=== PATIENT | male | born 1965 | race Hispanic/Latino ===

== ENCOUNTER 2017-01-22 06:14 | Observation (INO) | payer OTHER ==
--- NOTE | 2017-01-22 06:48 | ED PDOC ---
HPI: Abdomen Time Seen by Provider: 01/22/17 06:37 Chief Complaint (Nursing): Abdominal Pain Chief Complaint (Provider): Abdominal Pain History Per: Patient History/Exam Limitations: no limitations Onset/Duration Of Symptoms: Hrs (x24), Intermittent Episodes, Worse Since (x4 hours) Current Symptoms Are (Timing): Still Present Location Of Pain/Discomfort: RLQ Quality Of Discomfort: Sharp Associated Symptoms: Chills. denies: Fever, Nausea, Vomiting, Diarrhea Additional Complaint(s): 51 year old male presents to ED with complaints of intermittent abdominal pain x24 hours and has no past medical history. Patient notes that pain is present in RLQQ, describes the pain as sharp and notes that the pain has been progressively worsening x4 hours. (-) fever, nausea, vomiting, or diarrhea. (+) chills. Confirms taking Advil and Gas-X with no relief. PCP: Khurram Mcallister Past Medical History Reviewed: Historical Data, Nursing Documentation, Vital Signs Vital Signs: Last Vital Signs Temp 98.2 F 01/23/17 01:57 Pulse 89 01/23/17 01:57 Resp 20 01/23/17 01:57 BP 120/97 H 01/23/17 01:57 Pulse Ox 98 01/23/17 01:57 - Medical History PMH: No Chronic Diseases - Surgical History Other surgeries: right hand 4th digit surgery post-injury - Family History Family History: States: No Known Family Hx - Living Arrangements Living Arrangements: With Family - Home Medications Home Medications: Ambulatory Orders Medication Instructions Recorded No Known Home Med 01/22/17 - Allergies Allergies/Adverse Reactions: Allergies Allergy/AdvReac Type Severity Reaction Status Date / Time No Known Allergies Allergy Verified 01/22/17 06:25 Review of Systems ROS Statement: Except As Marked, All Systems Reviewed And Found Negative Constitutional: Positive for: Chills. Negative for: Fever Gastrointestinal: Positive for: Abdominal Pain. Negative for: Nausea, Vomiting , Diarrhea Physical Exam - Reviewed Nursing Documentation Reviewed: Yes Vital Signs Reviewed: Yes - Physical Exam Appears: Positive for: No Acute Distress Skin: Positive for: Normal Color, Warm Eye Exam: Positive for: Normal appearance ENT: Positive for: Normal ENT Inspection Neck: Positive for: Normal, Painless ROM, Supple Cardiovascular/Chest: Positive for: Regular Rate, Rhythm. Negative for: Murmur Respiratory: Positive for: Normal Breath Sounds. Negative for: Respiratory Distress Gastrointestinal/Abdominal: Positive for: Soft, Tenderness (Right lower quadrant tenderness). Negative for: Other ((-) obturator's or psoas signs) Back: Positive for: Normal Inspection Extremity: Positive for: Normal ROM. Negative for: Deformity Neurologic/Psych: Positive for: Alert, Oriented. Negative for: Motor/Sensory Deficits - Laboratory Results Result Diagrams: 01/22/17 06:45 01/22/17 06:45 - ECG O2 Sat by Pulse Oximetry: 98 (RA) Pulse Ox Interpretation: Normal Medical Decision Making Medical Decision Makin Initial impression: Right lower quadrant pain Initial plan: * CTA A/P * EKG * Labs * Lact Acid * Lipase * PTT/PT * BCx * ED OBS ADMISSION * UA All further documentation will take place in ED OBS note. Scribe Attestation: Documented by Kylee Ibanez acting as a scribe for Sam Fishman MD. Scribe Attestation: All medical record entries made by the Scribe were at my direction and personally dictated by me. I have reviewed the chart and agree that the record accurately reflects my personal performance of the history, physical exam, medical decision making, and the department course for this patient. I have also personally directed, reviewed, and agree with the discharge instructions and disposition. ED OBSERVATION Date of observation admission: 01/22/17 Time of observation admission: 06:44 - Observation admission statement Patient is being placed in observation because:: pending CT - Goals of Observation Goals of observation are:: pending CT - Progress Note Progress Note: 01/22/17 07:00 Patient will be signed out to Dr. Alcala pending CT. Disposition - Clinical Impression Clinical Impression: Abdominal pain - Disposition Disposition: Transfer of Care Disposition Time: 06:44 Condition: STABLE Patient Signed Over To: Chao Alcala III (At 0700) Handoff Comments: pending CT - Pt Status Changed To: Hospital Disposition Of: Observation (ED OBS) - POA Present On Arrival: None
--- NOTE | 2017-01-22 07:05 | ED PDOC ---
- Laboratory Results Result Diagrams: 01/22/17 06:45 01/22/17 06:45 - ECG O2 Sat by Pulse Oximetry: 98 (RA) Medical Decision Making Medical Decision Makin Patient transferred to al by Dr. Fishman. Pending CT and reevaluation 0830 -Labs reviewed. White blood cell count elevated. [address] FINDINGS: LOWER THORAX: Mild bibasilar dependent atelectasis. LIVER: Unremarkable. No gross lesion or ductal dilatation. GALLBLADDER AND BILE DUCTS: Unremarkable. PANCREAS: Unremarkable. No gross lesion or ductal dilatation. SPLEEN: Unremarkable. ADRENALS: Unremarkable. No mass. KIDNEYS AND URETERS: 2 mm nonobstructing mid left renal calculus. Minimal dilatation of the left renal pelvis and collecting system likely reflecting ureteropelvic junction obstruction. Less likely, parapelvic cysts. No renal mass. No right renal calculus. VASCULATURE: Unremarkable. No aortic aneurysm. BOWEL: No bowel obstruction. Findings consistent with acute appendicitis. Appendix dilated up to 16 mm and filled with fluid and trace gas. Periappendiceal inflammatory change. No periappendiceal abscess. No free air. Shotty subcentimeter mesenteric nodes are seen in the right lower quadrant of the abdomen medial to the cecum. APPENDIX: As above PERITONEUM: Unremarkable. No free fluid. No free air. LYMPH NODES: Unremarkable. No enlarged lymph nodes. BLADDER: Unremarkable. REPRODUCTIVE: Normal prostate BONES: No acute fracture. OTHER FINDINGS: None. IMPRESSION: Findings consistent with acute uncomplicated appendicitis. No abscess. No free air. Incidental 2 mm nonobstructing mid left renal calculus. 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 No other significant abnormality. -Discussed with FP resident, states Dr. Coleman used Dr. Ruiz for surgery. -Discussed with resident buyer. Disposition - Disposition Condition: STABLE
[2017-01-22 07:09] LABS: BASO # 0.1 K/uL (0.0-0.2); BASO % 0.5 % (0.0-2.0); EOS % 0.1 % (0.0-4.0); HEMATOCRIT 43.8 % (35.0-51.0); LYMPH # 1.3 K/uL (1.0-4.3); LYMPH % 6.3 % (20.0-40.0); MEAN CELL VOLUME 90.3 fl (80.0-94.0); MEAN CORPUSCULAR HEMOGLOBIN 30.2 pg (27.0-31.0); MEAN CORPUSCULAR HGB CONC 33.4 g/dL (33.0-37.0); MEAN PLATELET VOLUME 8.5 fl (7.2-11.7); MONO # 1.9 K/uL (0.0-0.8); MONO % 9.4 % (0.0-10.0); NEUT % 83.7 % (50.0-75.0); PLATELET COUNT 241 K/uL (130-400); RED CELL DISTRIBUTION WIDTH 13.3 % (11.5-14.5); WHITE BLOOD COUNT 20.3 K/uL (4.8-10.8)
[2017-01-22 07:16] LABS: ALB/GLOB RATIO 1.5 (1.0-2.1); ALKALINE PHOSPHATASE 69 U/L (38-126); ALT/SGPT 26 U/L (21-72); AST/SGOT 30 U/L (17-59); BILIRUBIN,TOTAL 1.1 mg/dl (0.2-1.3); BLOOD UREA NITROGEN 7 mg/dl (9-20); CALCIUM 9.4 mg/dL (8.4-10.2); CARBON DIOXIDE 25 mmol/L (22-30); CHLORIDE 102 mmol/L (98-107); GFR AFRICAN-AMERICAN > 60; GLUCOSE,RANDOM 131 mg/dL (75-110); LIPASE 24 U/L (23-300); POTASSIUM 4.1 MMOL/L (3.6-5.0); SODIUM 141 mmol/l (132-148); TOTAL PROTEIN 7.2 G/DL (6.3-8.2)
[2017-01-22 07:24] LABS: PARTIAL THROMBOPLASTIN TIME 31.5 Seconds (25.6-37.1)
[2017-01-22 08:00] LABS: RBC URINE 2 /hpf (0-3); URINE BILIRUBIN NEGATIVE (NEGATIVE); URINE BLOOD NEGATIVE (NEGATIVE); URINE COLOR YELLOW (YELLOW); URINE GLUCOSE (UA) NEG (Normal); URINE KETONE TRACE mg/dL (NEGATIVE); URINE LEUKOCYTE ESTERASE NEG Leu/uL (Negative); URINE PROTEIN NEGATIVE (NEGATIVE); URINE UROBILINOGEN 0.2-1.0 mg/dL (0.2-1.0); WBC URINE 1 /hpf (0-5)
[2017-01-22] MEDS ORDERED: Sodium Chloride 0.9% 1,000 ML IV STA (08:17)
[2017-01-22 08:46] LABS: VENOUS BLOOD GAS BASE EXCESS 3.8 mmol/L (0.0-2.0); VENOUS BLOOD GAS PCO2 48 mmHg (40-60)
[2017-01-22] MEDS ORDERED: Sodium Chloride 0.9% 50 ML IV ONE (09:32)
[2017-01-22] MEDS ORDERED: Iohexol 300 100 ML IJ ONE (09:32)
[2017-01-22 09:43] LABS: NEUTROPHIL 85 % (42-75); TOTAL CELLS COUNTED 100
--- NOTE | 2017-01-22 10:42 | CT ---
PROCEDURE: CT Abdomen and Pelvis with contrast HISTORY: RLQ COMPARISON: None. TECHNIQUE: Contrast dose: 95 mL Omnipaque 300 Radiation dose: Total exam DLP = 1147.41 mGy-cm. This CT exam was performed using one or more of the following dose reduction techniques: Automated exposure control, adjustment of the mA and/or kV according to patient size, and/or use of iterative reconstruction technique. FINDINGS: LOWER THORAX: Mild bibasilar dependent atelectasis. LIVER: Unremarkable. No gross lesion or ductal dilatation. GALLBLADDER AND BILE DUCTS: Unremarkable. PANCREAS: Unremarkable. No gross lesion or ductal dilatation. SPLEEN: Unremarkable. ADRENALS: Unremarkable. No mass. KIDNEYS AND URETERS: 2 mm nonobstructing mid left renal calculus. Minimal dilatation of the left renal pelvis and collecting system likely reflecting ureteropelvic junction obstruction. Less likely, parapelvic cysts. No renal mass. No right renal calculus. VASCULATURE: Unremarkable. No aortic aneurysm. BOWEL: No bowel obstruction. Findings consistent with acute appendicitis. Appendix dilated up to 16 mm and filled with fluid and trace gas. Periappendiceal inflammatory change. No periappendiceal abscess. No free air. Shotty subcentimeter mesenteric nodes are seen in the right lower quadrant of the abdomen medial to the cecum. APPENDIX: As above PERITONEUM: Unremarkable. No free fluid. No free air. LYMPH NODES: Unremarkable. No enlarged lymph nodes. BLADDER: Unremarkable. REPRODUCTIVE: Normal prostate BONES: No acute fracture. OTHER FINDINGS: None. IMPRESSION: Findings consistent with acute uncomplicated appendicitis. No abscess. No free air. Incidental 2 mm nonobstructing mid left renal calculus. 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 No other significant abnormality.
[2017-01-22] MEDS ORDERED: Piperacillin/Tazobact 4.5 GM in Sodium Chloride 0.9% 100 ML IVPB ONE (11:30)
[2017-01-22] MEDS ORDERED: Propofol 10 mg/ml Inj (20 ML) ONE (12:04)
[2017-01-22] MEDS ORDERED: Midazolam 2 MG/2 ML VIAL ONE (12:04)
[2017-01-22] MEDS ORDERED: Rocuronium 10 mg/ml (5 ml) ONE (12:05)
[2017-01-22] MEDS ORDERED: Bupivacaine 0.5% Inj(30mL) ONE (12:13)
[2017-01-22] MEDS ORDERED: Lactated Ringer's 1,000 ML IV ONE (12:15)
[2017-01-22] MEDS ORDERED: Sevoflurane - Inhalation Anesthetic Liq (250 ml) ONE (12:30)
[2017-01-22] MEDS ORDERED: Neostigmine Methylsulfate 3mg/3ml Syringe IV ONE (12:49)
[2017-01-22] MEDS ORDERED: Lactated Ringer's 1,000 ML IV PRN ×2 (12:50→23:30)
[2017-01-22] MEDS ORDERED: Sodium Chloride 0.9% 1,000 ML IV ONE (13:00)
[2017-01-22] MEDS ORDERED: Oxycodone/Acetaminophen 5/325 mg Tab PO PRN (13:06)
--- NOTE | 2017-01-22 13:06 | PCM.SURG1 ---
Surgeon's Initial Post Op Note - Surgeon's Notes Surgeon: Dr. Lara Hoof And Shoe Inspector: Dr. Sosa PGY3 Type of Anesthesia: General Endo, Local Pre-Operative Diagnosis: acute appendicitis Operative Findings: acute gangrenous nonperforated appendicitis Post-Operative Diagnosis: acute suppuritive appendicitis Operation Performed: laparoscopic appendectomy Specimen/Specimens Removed: appendix Estimated Blood Loss: EBL {In ML}: 5 Blood Products Given: N/A Drains Used: No Drains Post-Op Condition: Good Date of Surgery/Procedure: 01/22/17 Time of Surgery/Procedure: 13:06
[2017-01-22] MEDS ORDERED: Lactated Ringer's 500 ML IV ONE (14:30)
[2017-01-22] MEDS ORDERED: Influenza Vaccine 18yr & older 0.5 ML/45 MCG SYR IM ONE (15:15)
--- NOTE | 2017-01-22 15:59 | CP.PCM.HP ---
<Mejia Hurst - Last Filed: 01/22/17 15:55> History of Present Illness - History of Present Illness History of Present Illness: 51 y/o male with an unremarkable PMHx admitted for acute appendicitis. Pt is s/ p lap appendectomy, POD0. Surgery was uncomplicated and pt had an uncomplicated post-op course thus far. Pt seen and examined at bedside this afternoon with senior resident. Pt reports feeling well overall. Pain controlled. No flatus/BM/ urination yet. Tolerating ice chips w/o issue. Reports he would like to get out of bed and ambulate. Denies fever/chills, headaches, changes in vision, CP/SOB/ Palpitatations, N/V/D, numbness/tingling, calf pain. PMD: Dr. Mcallister PMHx: denies Meds: denies ALL: NKDA PSurgHx: right finger fx repair PHospHx: denies SocialHx: denies ETOH/Tobacco/Drug abuse. Present on Admission - Present on Admission Any Indicators Present on Admission: No Review of Systems - Review of Systems Review of Systems: 12 systems reviewed, found to be negative Past Patient History - Past Medical History & Family History Past Medical History?: No - Past Social History Smoking Status: Never Smoked Alcohol: None Drugs: Denies Home Situation {Lives}: With Family - PSYCHIATRIC Hx Substance Use: No - SURGICAL HISTORY Hx Surgeries: No (right finger sx) - ANESTHESIA Hx Anesthesia: No Meds Allergies/Adverse Reactions: Allergies Allergy/AdvReac Type Severity Reaction Status Date / Time No Known Allergies Allergy Verified 01/22/17 06:25 Physical Exam - Constitutional Appears: Non-toxic, No Acute Distress - Head Exam Head Exam: ATRAUMATIC, NORMOCEPHALIC - Eye Exam Eye Exam: EOMI. absent: Conjunctival injection, Scleral icterus Pupil Exam: PERRL - ENT Exam ENT Exam: Mucous Membranes Moist - Neck Exam Neck exam: Positive for: Normal Inspection - Respiratory Exam Respiratory Exam: Clear to Auscultation Bilateral, NORMAL BREATHING PATTERN. absent: Decreased Breath Sounds, Rales, Rhonchi, Wheezes, Respiratory Distress - Cardiovascular Exam Cardiovascular Exam: REGULAR RHYTHM, RRR, +S1, +S2. absent: Tachycardia, Gallop , JVD, Rubs, Systolic Murmur - GI/Abdominal Exam GI & Abdominal Exam: Normal Bowel Sounds, Soft, Tenderness (mild tendereness diffusely). absent: Distended, Firm, Guarding, Rebound, Rigid - Extremities Exam Extremities exam: Positive for: normal capillary refill, normal inspection, pedal pulses present. Negative for: calf tenderness, pedal edema, tenderness - Back Exam Back exam: NORMAL INSPECTION - Neurological Exam Neurological exam: Alert, CN II-XII Intact, Oriented x3 - Psychiatric Exam Psychiatric exam: Normal Affect, Normal Mood - Skin Skin Exam: Dry, Intact, Normal Color, Warm Results - Vital Signs Recent Vital Signs: Last Vital Signs Temp 98.1 F 01/22/17 14:50 Pulse 83 01/22/17 14:50 Resp 18 01/22/17 14:50 BP 121/77 01/22/17 14:50 Pulse Ox 96 01/22/17 14:50 - Labs Result Diagrams: 01/22/17 06:45 01/22/17 06:45 Labs: Laboratory Results - last 24 hr 01/22/17 01/22/17 01/22/17 06:45 06:45 06:45 WBC 20.3 H RBC 4.84 Hgb 14.6 Hct 43.8 MCV 90.3 MCH 30.2 MCHC 33.4 RDW 13.3 Plt Count 241 MPV 8.5 Neut % (Auto) 83.7 H Lymph % (Auto) 6.3 L [place] % (Auto) 9.4 Eos % (Auto) 0.1 Baso % (Auto) 0.5 Neut # 17.0 H Lymph # 1.3 [place] # 1.9 H Eos # 0.0 Baso # 0.1 Neutrophils % (Manual) 85 H Lymphocytes % (Manual) 7 L Monocytes % (Manual) 8 Hypersegmented Polys Present Platelet Estimate Normal RBC Morphology Normal PT 12.6 INR 1.2 APTT 31.5 pO2 VBG pH VBG pCO2 VBG HCO3 VBG Total CO2 VBG O2 Sat (Calc) VBG Base Excess VBG Potassium Glucose Lactate FiO2 Sodium 141 Potassium 4.1 Chloride 102 Carbon Dioxide 25 Anion Gap 18 BUN 7 L Creatinine 0.9 Est GFR ( Amer) > 60 Est GFR (Non-Af Amer) > 60 Random Glucose 131 H Lactic Acid Calcium 9.4 Total Bilirubin 1.1 AST 30 ALT 26 Alkaline Phosphatase 69 Total Protein 7.2 Albumin 4.3 Globulin 2.8 Albumin/Globulin Ratio 1.5 Lipase 24 Venous Blood Potassium Urine Color Urine Clarity Urine pH Ur Specific [place] Urine Protein Urine Glucose (UA) Urine Ketones Urine Blood Urine Nitrate Urine Bilirubin Urine Urobilinogen Ur Leukocyte Esterase Urine RBC (Auto) Urine Microscopic WBC Ur Squamous Epith Cells 01/22/17 01/22/17 01/22/17 06:45 06:50 08:34 WBC RBC Hgb Hct MCV MCH MCHC RDW Plt Count MPV Neut % (Auto) Lymph % (Auto) [place] % (Auto) Eos % (Auto) Baso % (Auto) Neut # Lymph # [place] # Eos # Baso # Neutrophils % (Manual) Lymphocytes % (Manual) Monocytes % (Manual) Hypersegmented Polys Platelet Estimate RBC Morphology PT INR APTT pO2 17 L VBG pH 7.40 VBG pCO2 48 VBG HCO3 25.9 VBG Total CO2 31.2 H VBG O2 Sat (Calc) 34.3 L VBG Base Excess 3.8 H VBG Potassium 5.0 Glucose 129 H Lactate 0.8 FiO2 21.0 Sodium 135.0 Potassium Chloride 102.0 Carbon Dioxide Anion Gap BUN Creatinine Est GFR ( Amer) Est GFR (Non-Af Amer) Random Glucose Lactic Acid 1.1 Calcium Total Bilirubin AST ALT Alkaline Phosphatase Total Protein Albumin Globulin Albumin/Globulin Ratio Lipase Venous Blood Potassium 5.0 Urine Color Yellow Urine Clarity Clear Urine pH 6.0 Ur Specific [place] 1.010 Urine Protein Negative Urine Glucose (UA) Neg Urine Ketones Trace Urine Blood Negative Urine Nitrate Negative Urine Bilirubin Negative Urine Urobilinogen 0.2-1.0 Ur Leukocyte Esterase Neg Urine RBC (Auto) 2 Urine Microscopic WBC 1 Ur Squamous Epith Cells < 1 Assessment & Plan (1) Acute appendicitis Assessment and Plan: s/p Lap appendectomy POD 0 -IV Fluid hydration -monitor CBC/CMP/vitals -pain control -OOB/ambulation when tolerated -advance diet as tolerated Status: Acute (2) Prophylactic measure Assessment and Plan: scds prn OOB/ambulation Status: Acute <Khurram Mcallister - Last Filed: 01/24/17 06:46> Results - Vital Signs Recent Vital Signs: Last Vital Signs Temp 98.4 F 01/23/17 09:00 Pulse 81 01/23/17 09:00 Resp 20 01/23/17 09:00 BP 107/67 01/23/17 09:00 Pulse Ox 96 01/23/17 09:00 - Labs Result Diagrams: 01/23/17 05:45 01/23/17 05:45 Labs: Laboratory Results - last 24 hr 01/23/17 01/23/17 05:45 05:45 WBC 13.3 H RBC 4.37 L Hgb 13.0 Hct 39.5 MCV 90.4 MCH 29.8 MCHC 33.0 RDW 13.8 Plt Count 197 MPV 8.9 Neut % (Auto) 77.0 H Lymph % (Auto) 11.0 L [place] % (Auto) 11.3 H Eos % (Auto) 0.4 Baso % (Auto) 0.3 Neut # 10.2 H Lymph # 1.5 [place] # 1.5 H Eos # 0.1 Baso # 0.0 Sodium 141 Potassium 3.9 Chloride 107 Carbon Dioxide 22 Anion Gap 16 BUN 8 L Creatinine 1.0 Est GFR ( Amer) > 60 Est GFR (Non-Af Amer) > 60 Random Glucose 111 H Calcium 8.4 Total Bilirubin 1.5 H AST 18 ALT 25 Alkaline Phosphatase 56 Total Protein 6.1 L Albumin 3.4 L D Globulin 2.7 Albumin/Globulin Ratio 1.3 Attending/Attestation - Attestation I have personally seen and examined this patient.: Yes I have fully participated in the care of the patient.: Yes I have reviewed all pertinent clinical information: Yes
[2017-01-22] MEDS: Piperacillin/Tazobact 3.375 GM in Sodium Chloride 0.9% 100 ML IVPB SCH ×2 (16:32→21:25)
--- NOTE | 2017-01-23 01:11 | OP ---
PROCEDURE DATE: 01/22/2017 PREOPERATIVE DIAGNOSIS: Acute appendicitis. POSTOPERATIVE DIAGNOSIS: Acute suppurative appendicitis. PROCEDURE: Laparoscopy and laparoscopic appendectomy. SURGEON: Dr. Lara. RN INTEGRITY: Dr. Sosa. TYPE OF ANESTHESIA: General. ANESTHESIA ADMINISTERED BY: . OPERATIVE FINDINGS: Acute suppurative and grossly gangrenous appendicitis. PROCEDURE: The patient was brought to the Operating Room and after successful induction of general endotracheal anesthesia was obtained and a Fabian catheter inserted, the abdomen was prepped and draped in the usual manner. A periumbilical Veress needle was inserted and making sure that it was in the intra-abdominal cavity, adequate pneumoperitoneum was obtained. The needle was removed. A periumbilical incision was made inserting a 10 mm trocar and doing a full laparoscopy. Under direct visualization, a 5 mm trocar was inserted in the suprapubic region. Dissection was carried out in the right lower quadrant. There was obvious acute appendicitis. A 12 mm trocar was inserted in the left lower quadrant after making an incision under direct visualization. At this point, grasping the tip of the appendix, dissection was carried out at the base. An Endo-JAZMÍN was used for the base of the appendix. This was a blue cartridge, a GI cartridge, and the base of the appendix was divided. At this point, the mesoappendix was visualized. This was then stapled using a vascular Endo-JAZMÍN. At this point, the appendix with the mesoappendix were placed in an Endo-bag. The area was copiously irrigated and suctioned. The Endo-bag was brought out with the appendix through the left lower quadrant incision. At this point, making sure that hemostasis was excellent, all trocars were removed under direct visualization. The left lower quadrant incision and the incision in the umbilicus were closed with #0 Vicryl and the all the skin incisions were closed with nylon. Marcaine was used for infiltration. POSTOPERATIVE CONDITION: The patient tolerated the procedure well and was transferred to Recovery Room in good general status. Esau Lara MD
--- NOTE | 2017-01-23 01:11 | CARD ---
APPROVED REPORT EKG Measurement Heart [id number] <Conclusion> Sinus tachycardia Otherwise normal ECG
[2017-01-23 01:58] VITALS: RESP 20
[2017-01-23] MEDS: Piperacillin/Tazobact 3.375 GM in Sodium Chloride 0.9% 100 ML IVPB SCH ×2 (03:17→09:47)
[2017-01-23 06:56] LABS: ALB/GLOB RATIO 1.3 (1.0-2.1); ALKALINE PHOSPHATASE 56 U/L (38-126); ALT/SGPT 25 U/L (21-72); AST/SGOT 18 U/L (17-59); BILIRUBIN,TOTAL 1.5 mg/dl (0.2-1.3); BLOOD UREA NITROGEN 8 mg/dl (9-20); CALCIUM 8.4 mg/dL (8.4-10.2); CARBON DIOXIDE 22 mmol/L (22-30); CHLORIDE 107 mmol/L (98-107); GFR AFRICAN-AMERICAN > 60; GLUCOSE,RANDOM 111 mg/dL (75-110); POTASSIUM 3.9 MMOL/L (3.6-5.0); SODIUM 141 mmol/l (132-148); TOTAL PROTEIN 6.1 G/DL (6.3-8.2)
[2017-01-23 06:57] LABS: BASO % 0.3 % (0.0-2.0); EOS # 0.1 K/uL (0.0-0.7); EOS % 0.4 % (0.0-4.0); HEMATOCRIT 39.5 % (35.0-51.0); LYMPH # 1.5 K/uL (1.0-4.3); MEAN CELL VOLUME 90.4 fl (80.0-94.0); MEAN CORPUSCULAR HEMOGLOBIN 29.8 pg (27.0-31.0); MEAN PLATELET VOLUME 8.9 fl (7.2-11.7); MONO # 1.5 K/uL (0.0-0.8); MONO % 11.3 % (0.0-10.0); NEUT # 10.2 K/uL (1.8-7.0); RED CELL DISTRIBUTION WIDTH 13.8 % (11.5-14.5); WHITE BLOOD COUNT 13.3 K/uL (4.8-10.8)
[2017-01-23 07:21] VITALS: O2SAT 96
[2017-01-23 07:23] VITALS: BP 107/67; PULSE 81; TEMP 98.4
--- NOTE | 2017-01-23 09:08 | CP.PCM.PN ---
Subjective - Date & Time of Evaluation Date of Evaluation: 01/23/17 Time of Evaluation: 09:06 - Subjective Subjective: Surgery: Dr. Lara Patient doing very well. Denies abdominal pain. Voiding freely. Ambulating. Pain controlled. Denies f/c. Per nursing no acute events overnight. Objective - Vital Signs/Intake and Output Vital Signs (last 24 hours): Temp Pulse Resp BP Pulse Ox 98.4 F 81 20 107/67 96 01/23/17 07:22 01/23/17 07:22 01/23/17 07:22 01/23/17 07:22 01/23/17 07:22 - Medications Medications: Current Medications Piperacillin Sod/Tazobactam (Sod 3.375 gm/ Sodium Chloride) 100 mls @ 100 mls/ hr IVPB Q6 MYLA Last Admin: 01/23/17 03:17 Dose: 100 mls/hr Lactated Ringer's (Lactated Ringer's 500ml) 1,000 mls @ 50 mls/hr IV .Q20H PRN PRN Reason: Hypotension Last Admin: 01/23/17 03:17 Dose: 50 mls/hr Morphine Sulfate (Morphine) 4 mg IVP Q4 PRN PRN Reason: Pain, severe (8-10) Ondansetron HCl (Zofran Inj) 4 mg IVP Q4 PRN PRN Reason: Nausea/Vomiting Oxycodone/Acetaminophen (Percocet 5/325 Mg Tab) 1 tab PO Q4 PRN PRN Reason: Pain, moderate (4-7) Stop: 01/25/17 13:07 Tramadol HCl (Ultram) 50 mg PO Q6 PRN PRN Reason: Pain, Mild (1-3) Last Admin: 01/23/17 03:19 Dose: 50 mg - Labs Labs: 01/23/17 05:45 01/23/17 05:45 PT 12.6 Seconds (9.8-13.1) 01/22/17 06:45 INR 1.2 (0.9-1.2) 01/22/17 06:45 APTT 31.5 Seconds (25.6-37.1) 01/22/17 06:45 - Constitutional Appears: Non-toxic, No Acute Distress - Head Exam Head Exam: ATRAUMATIC, NORMOCEPHALIC - Eye Exam Eye Exam: EOMI, Normal appearance - ENT Exam ENT Exam: Mucous Membranes Moist - Respiratory Exam Respiratory Exam: NORMAL BREATHING PATTERN. absent: Respiratory Distress - Cardiovascular Exam Cardiovascular Exam: REGULAR RHYTHM. absent: Tachycardia - GI/Abdominal Exam GI & Abdominal Exam: Soft. absent: Distended, Guarding, Rigid, Tenderness, Rebound Additional comments: 3 lower abdominal laparoscopic incisions CDI w/ dermabond dressing - Extremities Exam Extremities Exam: Normal Inspection. absent: Calf Tenderness - Neurological Exam Neurological Exam: Alert, Awake - Psychiatric Exam Psychiatric exam: Normal Affect, Normal Mood - Skin Skin Exam: Dry, Normal Color, Warm Assessment and Plan - Assessment and Plan (Free Text) Assessment: 51 y/o male s/p lap appy POD1 Plan: -reg diet this am -OOB -IS use -pain control -cont Zosyn while in house -possible d/c this afternoon pending Dr. Marco harley AKWhite PGY3
--- NOTE | 2017-01-23 14:08 | CP.PCM.DIS ---
<Mejia Hurst - Last Filed: 01/23/17 14:06> Provider - Provider Date of Admission: 01/22/17 06:44 Attending physician: Khurram Mcallister MD Primary care physician: Khurram Mcallister MD Time Spent in preparation of Discharge (in minutes): 35 Diagnosis - Discharge Diagnosis (1) Acute appendicitis Status: Acute Hospital Course - Lab Results Lab Results: Micro Results 01/22/17 07:00 Blood Blood Culture - Preliminary NO GROWTH AFTER 24 HOURS 01/22/17 06:45 Blood Blood Culture - Preliminary NO GROWTH AFTER 24 HOURS Most Recent Lab Values WBC 13.3 K/uL (4.8-10.8) H 01/23/17 05:45 RBC 4.37 Mil/uL (4.40-5.90) L 01/23/17 05:45 Hgb 13.0 g/dL (12.0-18.0) 01/23/17 05:45 Hct 39.5 % (35.0-51.0) 01/23/17 05:45 MCV 90.4 fl (80.0-94.0) 01/23/17 05:45 MCH 29.8 pg (27.0-31.0) 01/23/17 05:45 MCHC 33.0 g/dL (33.0-37.0) 01/23/17 05:45 RDW 13.8 % (11.5-14.5) 01/23/17 05:45 Plt Count 197 K/uL (130-400) 01/23/17 05:45 MPV 8.9 fl (7.2-11.7) 01/23/17 05:45 Neut % (Auto) 77.0 % (50.0-75.0) H 01/23/17 05:45 Lymph % (Auto) 11.0 % (20.0-40.0) L 01/23/17 05:45 Mitchell % (Auto) 11.3 % (0.0-10.0) H 01/23/17 05:45 Eos % (Auto) 0.4 % (0.0-4.0) 01/23/17 05:45 Baso % (Auto) 0.3 % (0.0-2.0) 01/23/17 05:45 Neut # 10.2 K/uL (1.8-7.0) H 01/23/17 05:45 Lymph # 1.5 K/uL (1.0-4.3) 01/23/17 05:45 Mitchell # 1.5 K/uL (0.0-0.8) H 01/23/17 05:45 Eos # 0.1 K/uL (0.0-0.7) 01/23/17 05:45 Baso # 0.0 K/uL (0.0-0.2) 01/23/17 05:45 Neutrophils % (Manual) 85 % (42-75) H 01/22/17 06:45 Lymphocytes % (Manual) 7 % (20-50) L 01/22/17 06:45 Monocytes % (Manual) 8 % (0-10) 01/22/17 06:45 Hypersegmented Polys Present 01/22/17 06:45 Platelet Estimate Normal (NORMAL) 01/22/17 06:45 RBC Morphology Normal (NORMAL) 01/22/17 06:45 PT 12.6 Seconds (9.8-13.1) 01/22/17 06:45 INR 1.2 (0.9-1.2) 01/22/17 06:45 APTT 31.5 Seconds (25.6-37.1) 01/22/17 06:45 pO2 17 mm/Hg (30-55) L 01/22/17 08:34 VBG pH 7.40 (7.32-7.43) 01/22/17 08:34 VBG pCO2 48 mmHg (40-60) 01/22/17 08:34 VBG HCO3 25.9 mmol/L 01/22/17 08:34 VBG Total CO2 31.2 mmol/L (22-28) H 01/22/17 08:34 VBG O2 Sat (Calc) 34.3 % (40-65) L 01/22/17 08:34 VBG Base Excess 3.8 mmol/L (0.0-2.0) H 01/22/17 08:34 VBG Potassium 5.0 mmol/L (3.6-5.2) 01/22/17 08:34 Sodium 135.0 mmol/L (132-148) 01/22/17 08:34 Chloride 102.0 mmol/L (98-107) 01/22/17 08:34 Glucose 129 mg/dL (75-110) H 01/22/17 08:34 Lactate 0.8 mmol/L (0.7-2.1) 01/22/17 08:34 FiO2 21.0 % 01/22/17 08:34 Sodium 141 mmol/l (132-148) 01/23/17 05:45 Potassium 3.9 MMOL/L (3.6-5.0) 01/23/17 05:45 Chloride 107 mmol/L (98-107) 01/23/17 05:45 Carbon Dioxide 22 mmol/L (22-30) 01/23/17 05:45 Anion Gap 16 (10-20) 01/23/17 05:45 BUN 8 mg/dl (9-20) L 01/23/17 05:45 Creatinine 1.0 mg/dL (0.8-1.5) 01/23/17 05:45 Est GFR ( Amer) > 60 01/23/17 05:45 Est GFR (Non-Af Amer) > 60 01/23/17 05:45 Random Glucose 111 mg/dL (75-110) H 01/23/17 05:45 Lactic Acid 1.1 MMOL/L (0.7-2.1) 01/22/17 06:45 Calcium 8.4 mg/dL (8.4-10.2) 01/23/17 05:45 Total Bilirubin 1.5 mg/dl (0.2-1.3) H 01/23/17 05:45 AST 18 U/L (17-59) 01/23/17 05:45 ALT 25 U/L (21-72) 01/23/17 05:45 Alkaline Phosphatase 56 U/L (38-126) 01/23/17 05:45 Total Protein 6.1 G/DL (6.3-8.2) L 01/23/17 05:45 Albumin 3.4 g/dL (3.5-5.0) L D 01/23/17 05:45 Globulin 2.7 gm/dL (2.2-3.9) 01/23/17 05:45 Albumin/Globulin Ratio 1.3 (1.0-2.1) 01/23/17 05:45 Lipase 24 U/L (23-300) 01/22/17 06:45 Venous Blood Potassium 5.0 mmol/L (3.6-5.2) 01/22/17 08:34 Urine Color Yellow (YELLOW) 01/22/17 06:50 Urine Clarity Clear (Clear) 01/22/17 06:50 Urine pH 6.0 (5.0-8.0) 01/22/17 06:50 Ur Specific [place] 1.010 (1.003-1.030) 01/22/17 06:50 Urine Protein Negative mg/dL (NEGATIVE) 01/22/17 06:50 Urine Glucose (UA) Neg mg/dL (Normal) 01/22/17 06:50 Urine Ketones Trace mg/dL (NEGATIVE) 01/22/17 06:50 Urine Blood Negative (NEGATIVE) 01/22/17 06:50 Urine Nitrate Negative (NEGATIVE) 01/22/17 06:50 Urine Bilirubin Negative (NEGATIVE) 01/22/17 06:50 Urine Urobilinogen 0.2-1.0 mg/dL (0.2-1.0) 01/22/17 06:50 Ur Leukocyte Esterase Neg Ned/uL (Negative) 01/22/17 06:50 Urine RBC (Auto) 2 /hpf (0-3) 01/22/17 06:50 Urine Microscopic WBC 1 /hpf (0-5) 01/22/17 06:50 Ur Squamous Epith Cells < 1 /hpf (0-5) 01/22/17 06:50 - Hospital Course Hospital Course: pt was admitted for acute appendicitis. Pt underwent laparscopic appendectomy. pt tolerated procedure well. Was given short course of IV abx. Pain was controlled. Pt improved. Surgery cleared pt. After an uneventful hospital stay, the pt was discharged in stable condition. Discharge Exam - Head Exam Head Exam: ATRAUMATIC, NORMOCEPHALIC - Eye Exam Eye Exam: EOMI Pupil Exam: PERRL - ENT Exam ENT Exam: Mucous Membranes Moist - Respiratory Exam Respiratory Exam: Clear to PA & Lateral, NORMAL BREATHING PATTERN, UNREMARKABLE - Cardiovascular Exam Cardiovascular Exam: REGULAR RHYTHM, RRR, +S1, +S2. absent: Diastolic murmur, Gallop, JVD, Rubs, Systolic Murmur - GI/Abdominal Exam GI & Abdominal Exam: Normal Bowel Sounds, Soft, Unremarkable - Extremities Exam Extremities exam: normal inspection - Neurological Exam Neurological exam: Alert, CN II-XII Intact, Oriented x3 - Psychiatric Exam Psychiatric exam: Normal Affect, Normal Mood - Skin Skin Exam: Dry, Intact, Normal Color, Warm Discharge Plan - Follow Up Plan Condition: STABLE Disposition: HOME/ ROUTINE Instructions: Amoxicillin/Clavulanate Potassium (By mouth), Tramadol (By mouth) , Laparoscopic Appendectomy (DC) Additional Instructions: Please make follow up appointment with surgeon and your primary MD Referrals: Jv Solomon MD [Staff Provider] - Khurram Mcallister MD [Primary Care Provider] - <Leroy Grant - Last Filed: 01/25/17 06:56> Provider - Provider Date of Admission: 01/22/17 06:44 Attending physician: Khurram Mcallister MD Primary care physician: Khurram Mcallister MD Hospital Course - Lab Results Lab Results: Micro Results 01/22/17 06:45 Blood Blood Culture - Preliminary NO GROWTH AFTER 3 DAYS 01/22/17 07:00 Blood Blood Culture - Preliminary NO GROWTH AFTER 48 HOURS Most Recent Lab Values WBC 13.3 K/uL (4.8-10.8) H 01/23/17 05:45 RBC 4.37 Mil/uL (4.40-5.90) L 01/23/17 05:45 Hgb 13.0 g/dL (12.0-18.0) 01/23/17 05:45 Hct 39.5 % (35.0-51.0) 01/23/17 05:45 MCV 90.4 fl (80.0-94.0) 01/23/17 05:45 MCH 29.8 pg (27.0-31.0) 01/23/17 05:45 MCHC 33.0 g/dL (33.0-37.0) 01/23/17 05:45 RDW 13.8 % (11.5-14.5) 01/23/17 05:45 Plt Count 197 K/uL (130-400) 01/23/17 05:45 MPV 8.9 fl (7.2-11.7) 01/23/17 05:45 Neut % (Auto) 77.0 % (50.0-75.0) H 01/23/17 05:45 Lymph % (Auto) 11.0 % (20.0-40.0) L 01/23/17 05:45 Mitchell % (Auto) 11.3 % (0.0-10.0) H 01/23/17 05:45 Eos % (Auto) 0.4 % (0.0-4.0) 01/23/17 05:45 Baso % (Auto) 0.3 % (0.0-2.0) 01/23/17 05:45 Neut # 10.2 K/uL (1.8-7.0) H 01/23/17 05:45 Lymph # 1.5 K/uL (1.0-4.3) 01/23/17 05:45 Mitchell # 1.5 K/uL (0.0-0.8) H 01/23/17 05:45 Eos # 0.1 K/uL (0.0-0.7) 01/23/17 05:45 Baso # 0.0 K/uL (0.0-0.2) 01/23/17 05:45 Neutrophils % (Manual) 85 % (42-75) H 01/22/17 06:45 Lymphocytes % (Manual) 7 % (20-50) L 01/22/17 06:45 Monocytes % (Manual) 8 % (0-10) 01/22/17 06:45 Hypersegmented Polys Present 01/22/17 06:45 Platelet Estimate Normal (NORMAL) 01/22/17 06:45 RBC Morphology Normal (NORMAL) 01/22/17 06:45 PT 12.6 Seconds (9.8-13.1) 01/22/17 06:45 INR 1.2 (0.9-1.2) 01/22/17 06:45 APTT 31.5 Seconds (25.6-37.1) 01/22/17 06:45 pO2 17 mm/Hg (30-55) L 01/22/17 08:34 VBG pH 7.40 (7.32-7.43) 01/22/17 08:34 VBG pCO2 48 mmHg (40-60) 01/22/17 08:34 VBG HCO3 25.9 mmol/L 01/22/17 08:34 VBG Total CO2 31.2 mmol/L (22-28) H 01/22/17 08:34 VBG O2 Sat (Calc) 34.3 % (40-65) L 01/22/17 08:34 VBG Base Excess 3.8 mmol/L (0.0-2.0) H 01/22/17 08:34 VBG Potassium 5.0 mmol/L (3.6-5.2) 01/22/17 08:34 Sodium 135.0 mmol/L (132-148) 01/22/17 08:34 Chloride 102.0 mmol/L (98-107) 01/22/17 08:34 Glucose 129 mg/dL (75-110) H 01/22/17 08:34 Lactate 0.8 mmol/L (0.7-2.1) 01/22/17 08:34 FiO2 21.0 % 01/22/17 08:34 Sodium 141 mmol/l (132-148) 01/23/17 05:45 Potassium 3.9 MMOL/L (3.6-5.0) 01/23/17 05:45 Chloride 107 mmol/L (98-107) 01/23/17 05:45 Carbon Dioxide 22 mmol/L (22-30) 01/23/17 05:45 Anion Gap 16 (10-20) 01/23/17 05:45 BUN 8 mg/dl (9-20) L 01/23/17 05:45 Creatinine 1.0 mg/dL (0.8-1.5) 01/23/17 05:45 Est GFR ( Amer) > 60 01/23/17 05:45 Est GFR (Non-Af Amer) > 60 01/23/17 05:45 Random Glucose 111 mg/dL (75-110) H 01/23/17 05:45 Lactic Acid 1.1 MMOL/L (0.7-2.1) 01/22/17 06:45 Calcium 8.4 mg/dL (8.4-10.2) 01/23/17 05:45 Total Bilirubin 1.5 mg/dl (0.2-1.3) H 01/23/17 05:45 AST 18 U/L (17-59) 01/23/17 05:45 ALT 25 U/L (21-72) 01/23/17 05:45 Alkaline Phosphatase 56 U/L (38-126) 01/23/17 05:45 Total Protein 6.1 G/DL (6.3-8.2) L 01/23/17 05:45 Albumin 3.4 g/dL (3.5-5.0) L D 01/23/17 05:45 Globulin 2.7 gm/dL (2.2-3.9) 01/23/17 05:45 Albumin/Globulin Ratio 1.3 (1.0-2.1) 01/23/17 05:45 Lipase 24 U/L (23-300) 01/22/17 06:45 Venous Blood Potassium 5.0 mmol/L (3.6-5.2) 01/22/17 08:34 Urine Color Yellow (YELLOW) 01/22/17 06:50 Urine Clarity Clear (Clear) 01/22/17 06:50 Urine pH 6.0 (5.0-8.0) 01/22/17 06:50 Ur Specific [place] 1.010 (1.003-1.030) 01/22/17 06:50 Urine Protein Negative mg/dL (NEGATIVE) 01/22/17 06:50 Urine Glucose (UA) Neg mg/dL (Normal) 01/22/17 06:50 Urine Ketones Trace mg/dL (NEGATIVE) 01/22/17 06:50 Urine Blood Negative (NEGATIVE) 01/22/17 06:50 Urine Nitrate Negative (NEGATIVE) 01/22/17 06:50 Urine Bilirubin Negative (NEGATIVE) 01/22/17 06:50 Urine Urobilinogen 0.2-1.0 mg/dL (0.2-1.0) 01/22/17 06:50 Ur Leukocyte Esterase Neg Ned/uL (Negative) 01/22/17 06:50 Urine RBC (Auto) 2 /hpf (0-3) 01/22/17 06:50 Urine Microscopic WBC 1 /hpf (0-5) 01/22/17 06:50 Ur Squamous Epith Cells < 1 /hpf (0-5) 01/22/17 06:50 Attending/Attestation - Attestation I have personally seen and examined this patient.: Yes I have fully participated in the care of the patient.: Yes I have reviewed all pertinent clinical information, including history, physical exam and plan: Yes
== END 2017-01-23 15:24 | disposition home or self-care (01) ==
LOC: H.ER 06:14 → H.EROBSV 06:44 → H.ERHOLD 11:31 → H.MEDSURG1 12:05
PROVIDERS: ADMIT Family Medicine; ATTEND Family Medicine
DX: K35.80 Unspecified acute appendicitis (principal); N13.5 Crossing vessel and stricture of ureter without hydronephrosis; N20.0 Calculus of kidney; Z23 Encounter for immunization
CPT/HCPCS: 36415; 44970; 74177; 80053; 81003; 82803; 83605; 83690; 85025; 85610; 85730; 87040; 88304; 90471; 93005; 99283; G0378; J1885; J2001; J2250; J2405; J2543; J2704; J2710; J3010; J7040; J7120; Q2035; Q9967